=== PATIENT | male | born 1995 | race Native Hawaiian/Other Pacific Islander ===

== ENCOUNTER 2019-08-15 15:23 | Emergency (ER) | payer OTHER, MEDICAID, SELFPAY ==
--- NOTE | 2019-08-15 16:32 | PC.NURSE ---
Patient was in the room masturbating. He was approached by Galilea Gomez RN and told to stop masturbating or the police would be notified.
--- NOTE | 2019-08-15 17:07 | PC.NURSE ---
Pt unable to tell me where he is, situation, history or what day it is. Looks forward and mumbles. Denies chest pain/ shortness of breath. Pt found to be masterbating openly in room and laughed when I asked him to stop. SPECIAL COLLECTIONS LIBRARIAN in to evaluate. Refused lab draw. Refused male staff which I told him was non negotiable.
[2019-08-15 17:22] VITALS: BP 102/49; PULSE 63; RESP 18; TEMP 37.1; O2SAT 98
--- NOTE | 2019-08-15 17:36 | CM.SWNOTE ---
REFRACTORY REPAIRER note REFRACTORY REPAIRER consult requested for patient. Patient account of reasoning for ED visit is different for each person who asks. Patient reports dry heaving at registration, testicular swelling at triage, and that he is at ED to find [his] family to REFRACTORY REPAIRER during assessment. Prior to REFRACTORY REPAIRER assessment, patient was caught masturbating in ED, and asked to stop by ANGEL LUIS Calero. REFRACTORY REPAIRER meets with patient. Patient seems alert, and oriented somewhat to place and person, but not to time. Patient keeps blanket over head throughout assessment. Patient states he is here to find his family, and that [place] REFRACTORY REPAIRER asks if patient knows where, and patient does not respond. REFRACTORY REPAIRER asks when patient last saw his family and patient reports before I was born, and describes a scene in which he was with his family sitting. REFRACTORY REPAIRER asks if patient is feeling unwell and if there is sort of pain or discomfort that resulted in today's ED visit, and patient states not for you to REFRACTORY REPAIRER and requests a female doctor. REFRACTORY REPAIRER inquires about SI/HI and patient denies any history of SI/HI and states is currently not suicidal in any way. REFRACTORY REPAIRER asks patient about what brought him to the ER if he was looking for his family and patient reports he wanted to be sent upstairs and requested a veggie wrap. REFRACTORY REPAIRER asked what he was hoping would happen with today's visit and patient did not respond. When REFRACTORY REPAIRER asked if there was anything else REFRACTORY REPAIRER could do, patient said no and REFRACTORY REPAIRER exited room. REFRACTORY REPAIRER staffs with provider Daphnie Farley and ANGEL LUIS Calero. REFRACTORY REPAIRER will call [facility] for DCR consult for grave disability. Per ATUL report, patient was seen at [facility] previous day, and records have been requested. See below for assessment REFRACTORY REPAIRER - Independent Film Maker Assessment REFRACTORY REPAIRER - Independent Film Maker Assessment Start: 08/15/19 17:22 Freq: Status: Active Protocol: Document 08/15/19 17:22 OSCAR (Rec: 08/15/19 17:36 OSCAR [id number]) REFRACTORY REPAIRER/Independent Film Maker Assessment Time Spent with Patient Start date 08/15/19 Visit Start Time 16:45 End date 08/15/19 Visit End Time 17:00 Total time Care Management spent on 15 patient visit-in minutes Mental Health Screening Include Onset, Duration, Intensity Presenting Problem Patient reports multiple reasons for today's presentation to ED. Patient reported dry heaving at registration, testicular swelling during triage, and informs REFRACTORY REPAIRER during assessment that he came to the ED to find his family, who [place]. Precipitating Event(s) Patient refused to discuss reason for coming to ED with REFRACTORY REPAIRER. When asked if there was health related concern that caused him to come to ED, patient states not for you and I need a female doctor. Current Behavioral Health Provider(s) Unknown Include Facility, Provider, Ph. # Psych. Hx Mental Health and Chemical Unknown based on current Dependency assessment. Family Hx of Behavioral Abuse Unknown Psychiatric Hospitalizations (date(s)/ Patient has been hospitalized location) at [facility] in February,. Support System(s) Unknown/unable to assess School/Work unknown/unable to assess Legal Concerns Legal Matters - Outstanding Issues unknown Mental Status Orientation (Person/Place/Time) Patient appeared to be somewhat oriented to place, was not oriented to time, and somewhat oriented to person. Affect Flat Thought Content - Specify/Describe Unable to fully evaluate. Obsessions, Delusions, Hallucinations Patient did report that that he was here before he was born and discusses time prior to his in the first person during brief assessment . Thought Processes (Cdctjes-Difrddrl-Jzjk tangential- some thought Sjkpqrra-Ecauvpcc-Plpiqyyxzo- blocking Tgkhmovqgoklvs-Pjjuwhx-Lfysspfkoyta- Thought Blocking) Speech (Jbwgkc-Odwe-Wysovjg-Rapid-Soft- Normal Loud-Pressured) Motor (Zzrnaq-Wvwdtmcxv-Mict-Other) Slow. Insight (Present-Partially Present- Impaired Impaired) Judgement (Intact-Impaired) Impaired Impulse Control (Adequate-Impaired) Impaired. Memory (Dcomrtrok-Hsyrlt-Cylioh, Unable to fully assess. Impaired-Intact) Concentration (Intact-Impaired) Impaired Attention (Intact-Impaired) Impaired Behavior (Appropriate-Inappropriate) Inappropriate. Patient was masturbating in ED with door open and asked to stop. Additional Comment Patient held blanket over head during assessment. Risk Assessment Suicidal Ideation (Plan) No Homicidal Ideation (Plan) No Comment Patient actively denies SI/HI, and states he has had not history of self harm or suicide attempts. Intervention Intervention REFRACTORY REPAIRER meets with patient. Patient had been asked to stop masturbating in ED prior to REFRACTORY REPAIRER visit. Patient refuses to answer questions during assessment, and requests a female doctor but will not disclose the reasoning to REFRACTORY REPAIRER. No SI/HI. REFRACTORY REPAIRER will call [facility] to request DCR consult for grave disability. Plan RA Plan REFRACTORY REPAIRER will call [facility] to request DCR consult for grave disability. DIRK Tam
--- NOTE | 2019-08-15 17:45 | CM.SWNOTE ---
SUPERCHARGER MECHANIC note SUPERCHARGER MECHANIC calls [facility] and speaks with Ariadna. SUPERCHARGER MECHANIC provides overview on patient's stay in ED and requests DCR consult. Ariadna informs SUPERCHARGER MECHANIC that enough information was provided for a DCR to be dispatched. Ariadna requests attestation form be faxed to DCR once labs have been completed. SUPERCHARGER MECHANIC speaks with RN Galilea and provider Daphnie Farley NP. RN informs SUPERCHARGER MECHANIC that patient is refusing labs. SUPERCHARGER MECHANIC calls [facility] back and speaks to Grace. Grace informs SUPERCHARGER MECHANIC that if a note is made that patient is refusing labs, to write that in attestation form and fax to [facility]. SUPERCHARGER MECHANIC updates RN and provider, provider signs form, and SUPERCHARGER MECHANIC faxes attestation form to [facility]. Pl: SUPERCHARGER MECHANIC will wait for follow up from DCR. DIRK Tam
--- NOTE | 2019-08-15 19:10 | PC.NURSE ---
Jude Campbell on watch @ 19:00. Sumeet has been informed of Pt. behaviors. Pt. currently on stretcher with blanket over his head.
[2019-08-15 19:12] LABS: Bacteria Urine None Seen; RBC Urine None Seen (0-5/HPF)
[2019-08-15 19:14] LABS: Appearance Urine UA CLEAR; Bilirubin Urine UA NEGATIVE (NEGATIVE); Color Urine UA YELLOW; Glucose Urine UA NEGATIVE (Negative); Ketones Urine UA TRACE (NEGATIVE); Leukocyte Esterase Urine UA NEGATIVE (NEGATIVE); Nitrite Urine UA NEGATIVE (Negative); Occult Blood Urine UA NEGATIVE (Negative); Protein Urine UA TRACE (Negative); Specific Gravity Urine UA >=1.030 (1.000-1.035); Urobilinogen Urine UA 0.2 E.U./dL (0.2)
--- NOTE | 2019-08-15 19:15 | PC.NURSE ---
Pt currently trying to masturbate under blanket, he has been informed that the behavior is not acceptable in this environment. he has accepted apple juice in return for stopping this behavior
[2019-08-15 19:19] LABS: Ur Creatinine Normal (Normal); Ur Specific Gravity Normal (Normal); Urine pH Normal (Normal)
[2019-08-15 19:20] LABS: UR Morphine/Opiate cutoff 300 Negative (Negative); Urine Amphetamines Negative (Negative); Urine Barbiturates Negative (Negative); Urine Benzodiazepines Negative (Negative); Urine Cocaine Negative (Negative); Urine MDMA Negative (Negative); Urine Methadone Negative (Negative); Urine Methamphetamines Negative (Negative); Urine Oxycodone Negative (Negative); Urine Phencyclidine Negative (Negative); Urine Tetrahydrocannabinol Positive (Negative); Urine Tricyclic Antidepressant Negative (Negative)
[2019-08-15 19:22] LABS: WBC Urine 0-1/HPF (0-5/HPF)
[2019-08-15 19:23] LABS: Amorphous Sediment Urine 2+; Culture Indicated Urine Cult Not Indicated; Mucus Urine 3+ (Negative)
--- NOTE | 2019-08-15 19:27 | PC.NURSE ---
DCR currently in Rm with Pt
--- NOTE | 2019-08-15 20:21 | PC.NURSE ---
Pt states I ate a parasite, he thought it was a piece of chocolate on the ground but it might have been a parasite, it was fun
--- NOTE | 2019-08-15 20:39 | PC.NURSE ---
Pt informed that masturbation in the ED rm is not appropriate behaviour
[2019-08-15 20:59] VITALS: BP 131/56; PULSE 51; RESP 16; O2SAT 99
--- NOTE | 2019-08-15 21:18 | ED_ITS ---
HPI - Psych <ALEXA Stovall- - Last Filed: 08/15/19 22:03> General Chief Complaint: Psychiatric Symptoms Stated Complaint: TIRED Time Seen by Provider: 08/15/19 16:05 Source: patient Mode of arrival: Ambulatory Limitations: no limitations and altered mental status History of Present Illness HPI Narrative: The patient is a 23-year-old male who presented to the emergency department today dry heaving to registration. The patient then states that his name is ?shark boy.Upon my interview, he asked me to look at his genitals. The patient states that he is here ?for a health check He denies any cough, chest pain, shortness of breath. He denies any abdominal pain or fever. He is eating and drinking okay. He states that he has not seen a healthcare provider recently, though arnold report illustrate that the patient was seen at [facility] emergency department yesterday and found to be discharged. There he received blood work, CT of his head, CT of his C-spine and a psychiatric evaluation. Related Data Allergies Allergy/AdvReac Type Severity Reaction Status Date / Time No Known Drug Allergies Allergy Verified 08/15/19 15:36 Review of Systems <LUIS A Stovall - Last Filed: 08/15/19 22:03> Review of Systems Narrative: GENERAL: Denies chills, fatigue, malaise, fever, sweats. HEENT: Denies sinus pain, ear pain, sore throat, difficulty swallowing, dizziness. RESPIRATORY: Denies dyspnea, cough, wheezing, hemoptysis, sputum. CARDIOVASCULAR: Denies chest pain, palpitations, orthopnea, edema, GASTROINTESTINAL: Denies nausea, vomiting, abdominal pain, diarrhea, consti pation, melena. : Denies dysuria, frequency, incontinence, hematuria, urinary retention. MUSCULOSKELETAL: denies weakness, joint pain, or bony pain SKIN: Denies rash, skin lesions, or other NEUROLOGIC: See HPI PSYCHIATRIC: No concerning psychosocial issues. 12 point review of systems is negative except for those stated above Exam <LUIS A Stovall - Last Filed: 08/15/19 22:03> Narrative Exam Narrative: GENERAL: This is a well-nourished, well-developed patient, in no acute distress HEAD: Atraumatic. Normocephalic. No temporal or scalp tenderness. EYES: Pupils equal round and reactive. Extraocular motions intact. No scleral icterus. No injection or drainage. ENT: Nose without bleeding, purulent drainage or septal hematoma. Throat without erythema, tonsillar hypertrophy or exudate. Uvula midline. Airway patent. Strabismus noted NECK: Trachea midline. No JVD or lymphadenopathy. Supple, nontender, no meningeal signs. CARDIOVASCULAR: Regular rate and rhythm RESPIRATORY: Clear to auscultation. Breath sounds equal bilaterally. No wheezes, rales, or rhonchi. No cough. No increased respiratory effort. No accessory muscle use. GASTROINTESTINAL: Abdomen soft, non-tender, nondistended. No hepato- splenomegaly, or palpable masses. No guarding. EXTREMITIES: No clubbing, cyanosis, or edema. No joint tenderness, effusion, or edema noted. BACK: Nontender without deformity or crepitance. No flank tenderness. NEURO: Labile affect, giggling at times. States he ate a parasite. Masturbating multiple times in the emergency department requiring multiple e pisodes of redirection. He states he is at a hospital, not exactly sure which hospital, not oriented to time. States that his name is ?shockboy SKIN: No rash or erythema. Initial Vital Signs Initial Vital Signs: Vital Signs Temperature 98.7 F 08/15/19 17:22 Pulse Rate 63 08/15/19 17:22 Respiratory Rate 18 08/15/19 17:22 Blood Pressure 102/49 L 08/15/19 17:22 Pulse Oximetry 98 08/15/19 17:22 <Francsico Todd DO - Last Filed: 08/16/19 05:30> Initial Vital Signs Initial Vital Signs: Vital Signs Temperature 98.7 F 08/15/19 17:22 Pulse Rate 63 08/15/19 17:22 Respiratory Rate 18 08/15/19 17:22 Blood Pressure 102/49 L 08/15/19 17:22 Pulse Oximetry 98 08/15/19 17:22 Scores <ELIZABETH Stovall - Last Filed: 08/15/19 22:03> GCS [place] coma scale eye opening: Spontaneous [place] coma scale verbal response: Orientated Paul coma scale motor response: Obey commands Paul coma scale total score: 15 Course <ELIZABETH Stovall - Last Filed: 08/15/19 22:03> Orders Ordered: ED Orders 08/15/19 21:17 Acetaminophen Stat Complete Blood Count AUTO DIFF Stat Comprehensive Metabolic Panel Stat Ethanol (ETOH) Stat [place] Stat Salicylate Stat Thyroid Stimulating Hormone Stat Discontinued Medications Sodium Chloride (Normal Saline 0.9%) 1,000 mls @ 1,000 mls/hr IV BOLUS ONE Stop: 08/15/19 16:59 Last Admin: 08/15/19 16:53 Dose: Not Given Documented by: ELIANA Lorazepam (Ativan) 1 mg PO NOW ONE Stop: 08/15/19 21:35 Last Admin: 08/15/19 21:50 Dose: 1 mg [facility] Consult[facility] Consultation #1: I spoke with Officer Charlotte from [place] [employer], who states that the patient is not supposed to be on campus as he has been trespassed. However given that the patient is here to get psychiatric help, appears greatly with stable, will not pursue this at this point time. The patient does have a warrant. Vital Signs Vital signs: Vital Signs - 8 hr 08/15/19 17:22 08/15/19 20:59 Temperature 98.7 F Pulse Rate 63 51 L Respiratory Rate 18 16 Blood Pressure [Right Arm] 102/49 L 131/56 L Pulse Oximetry 98 99 <Francisco Todd DO - Last Filed: 08/16/19 05:30> Orders Ordered: ED Orders 08/15/19 21:17 Acetaminophen Stat Complete Blood Count AUTO DIFF Stat Comprehensive Metabolic Panel Stat Ethanol (ETOH) Stat [place] Stat Salicylate Stat Thyroid Stimulating Hormone Stat Discontinued Medications Sodium Chloride (Normal Saline 0.9%) 1,000 mls @ 1,000 mls/hr IV BOLUS ONE Stop: 08/15/19 16:59 Last Admin: 08/15/19 16:53 Dose: Not Given Documented by: ELIANA Lorazepam (Ativan) 1 mg PO NOW ONE Stop: 08/15/19 21:35 Last Admin: 08/15/19 21:50 Dose: 1 mg [facility] Vital Signs Vital signs: Vital Signs - 8 hr 08/15/19 17:22 08/15/19 20:59 Temperature 98.7 F Pulse Rate 63 51 L Respiratory Rate 18 16 Blood Pressure [Right Arm] 102/49 L 131/56 L Pulse Oximetry 98 99 MDM - Psych <Daphnie Farley, ENDOSCOPY TECHNICAN-BC - Last Filed: 08/15/19 22:03> Lab Data Result diagrams: 08/15/19 21:17 08/15/19 21:17 Labs: Lab Results 08/15/19 08/15/19 08/15/19 Range/Units 18:52 18:52 21:17 WBC 6.9 (4.5-11.0) X10^3/uL RBC 3.66 L (4.5-5.9) X10^6/uL Hgb 11.6 L (13.5-17.5) g/dL Hct 34.4 L (41-53) % MCV 94.1 (80-100) fL MCH 31.7 (26-34) PG MCHC 33.7 (30-36) % RDW 12.8 (11.6-14.8) % Plt Count 254 (150-400) X10^3/uL Neut % (Auto) 54.3 (50-75) % Lymph % (Auto) 35.2 (25-40) % Barbour % (Auto) 8.0 (3-14) % Eos % (Auto) 2.3 (2-4) % Baso % (Auto) 0.2 (0-2) % Neut # (Auto) 3800 (5803-8232) /uL Lymph # (Auto) 2400 (3678-5781) /uL Barbour # (Auto) 600 (0-900) /uL Eos # (Auto) 200 (0-450) /uL Baso # (Auto) 0 (0-100) /uL Sodium (137-145) mmol/L Potassium (3.4-5.1) mmol/L Chloride (98-107) mmol/L Carbon Dioxide (22-32) mmol/L BUN (9-20) mg/dL Creatinine (0.66-1.25) mg/dL Estimated GFR (>60) mL/min BUN/Creatinine Ratio (6-22) Glucose (70-100) mg/dL Calcium (8.4-10.2) mg/dL Total Bilirubin (0.2-1.3) mg/dL AST (17-59) IU/L ALT (<50) IU/L Alkaline Phosphatase (38-126) U/L Total Protein (6.3-8.2) g/dL Albumin (3.5-5.0) g/dL Globulin (1.7-4.1) g/dL Albumin/Globulin Ratio (1.0-2.8) TSH (0.47-4.68) uIU/mL Urine Color Yellow Urine Appearance Clear Urine pH 5.0 (4.5-8.0) Ur Specific [place] >=1.030 H (1.000-1.035) Urine Protein Trace H (Negative) Urine Glucose (UA) Negative (Negative) g/dL Urine Ketones Trace H (NEGATIVE) Urine Occult Blood Negative (Negative) Urine Nitrate Negative (Negative) Urine Bilirubin Negative (NEGATIVE) Urine Urobilinogen 0.2 (0.2) E.U./dL Ur Leukocyte Esterase Negative (NEGATIVE) Urine RBC None seen (0-5/HPF) Urine WBC 0-1/hpf (0-5/HPF) Amorphous Sediment 2+ Urine Bacteria None seen (None) Urine Mucus 3+ H (Negative) Ur Culture Indicated? Cult not indicated Salicylates (<20) mg/dL U Opiates 300ng/mL cut Negative (Negative) Ur Oxycodone Screen Negative (Negative) Urine Methadone Screen Negative (Negative) Acetaminophen (10-30) ug/mL Ur Barbiturates Screen Negative (Negative) U Tricyclic Antidepress Negative (Negative) Ur Phencyclidine Scrn Negative (Negative) Ur Amphetamines Screen Negative (Negative) U Methamphetamines Scrn Negative (Negative) Ur MDMA Scrn (Ecstasy) Negative (Negative) U Benzodiazepines Scrn Negative (Negative) [place] (0.6-1.2) mmol/L Urine Cocaine Screen Negative (Negative) U Marijuana (THC) Screen Positive H (Negative) Ethyl Alcohol ( - 10) mg/dL 08/15/19 08/15/19 Range/Units 21:17 21:17 WBC (4.5-11.0) X10^3/uL RBC (4.5-5.9) X10^6/uL Hgb (13.5-17.5) g/dL Hct (41-53) % MCV (80-100) fL MCH (26-34) PG MCHC (30-36) % RDW (11.6-14.8) % Plt Count (150-400) X10^3/uL Neut % (Auto) (50-75) % Lymph % (Auto) (25-40) % [place] % (Auto) (3-14) % Eos % (Auto) (2-4) % Baso % (Auto) (0-2) % Neut # (Auto) (8219-2731) /uL Lymph # (Auto) (5949-6224) /uL [place] # (Auto) (0-900) /uL Eos # (Auto) (0-450) /uL Baso # (Auto) (0-100) /uL Sodium 142 (137-145) mmol/L Potassium 3.4 (3.4-5.1) mmol/L Chloride 110 H (98-107) mmol/L Carbon Dioxide 28 (22-32) mmol/L BUN 10 (9-20) mg/dL Creatinine 0.87 (0.66-1.25) mg/dL Estimated GFR > 60.0 (>60) mL/min BUN/Creatinine Ratio 11.5 (6-22) Glucose 100 (70-100) mg/dL Calcium 9.2 (8.4-10.2) mg/dL Total Bilirubin 0.3 (0.2-1.3) mg/dL AST 81 H (17-59) IU/L ALT 26 (<50) IU/L Alkaline Phosphatase 54 (38-126) U/L Total Protein 6.6 (6.3-8.2) g/dL Albumin 3.9 (3.5-5.0) g/dL Globulin 2.7 (1.7-4.1) g/dL Albumin/Globulin Ratio 1.4 (1.0-2.8) TSH 2.01 (0.47-4.68) uIU/mL Urine Color Urine Appearance Urine pH (4.5-8.0) Ur Specific [place] (1.000-1.035) Urine Protein (Negative) Urine Glucose (UA) (Negative) g/dL Urine Ketones (NEGATIVE) Urine Occult Blood (Negative) Urine Nitrate (Negative) Urine Bilirubin (NEGATIVE) Urine Urobilinogen (0.2) E.U./dL Ur Leukocyte Esterase (NEGATIVE) Urine RBC (0-5/HPF) Urine WBC (0-5/HPF) Amorphous Sediment Urine Bacteria (None) Urine Mucus (Negative) Ur Culture Indicated? Salicylates < 1.0 (<20) mg/dL U Opiates 300ng/mL cut (Negative) Ur Oxycodone Screen (Negative) Urine Methadone Screen (Negative) Acetaminophen < 10 L (10-30) ug/mL Ur Barbiturates Screen (Negative) U Tricyclic Antidepress (Negative) Ur Phencyclidine Scrn (Negative) Ur Amphetamines Screen (Negative) U Methamphetamines Scrn (Negative) Ur MDMA Scrn (Ecstasy) (Negative) U Benzodiazepines Scrn (Negative) [place] < 0.2 L (0.6-1.2) mmol/L Urine Cocaine Screen (Negative) U Marijuana (THC) Screen (Negative) Ethyl Alcohol < 10 ( - 10) mg/dL MDM Narrative Medical decision making narrative: The patient is a 23-year-old male who presents with a chief complaint of ?needing a health check.The patient initially declines any lab work. Eventually he agrees to lab work. However the patient appears to be gravely disabled, stating that he was ?here before he was born states that his name is shark boy and needing redirection multiple times for masturbating in his emergency department room. Patient was evaluated by Sebastián CAVAZOS, who states the patient is gravely disabled. DCR came to see patient and helped arrange for admission at [facility] under Dr. Murcia. Patient was transferred by ambulance with 1 mg Ativan pre transport. Discussed patient with Dr. Todd awaiting ambulance transportation however patient is fully dispositioned and hemodynamically stable at this point time <Francisco Todd, - Last Filed: 08/16/19 05:30> Lab Data Labs: Lab Results 08/15/19 08/15/19 08/15/19 Range/Units 18:52 18:52 21:17 WBC 6.9 (4.5-11.0) X10^3/uL RBC 3.66 L (4.5-5.9) X10^6/uL Hgb 11.6 L (13.5-17.5) g/dL Hct 34.4 L (41-53) % MCV 94.1 (80-100) fL MCH 31.7 (26-34) PG MCHC 33.7 (30-36) % RDW 12.8 (11.6-14.8) % Plt Count 254 (150-400) X10^3/uL Neut % (Auto) 54.3 (50-75) % Lymph % (Auto) 35.2 (25-40) % [place] % (Auto) 8.0 (3-14) % Eos % (Auto) 2.3 (2-4) % Baso % (Auto) 0.2 (0-2) % Neut # (Auto) 3800 (2048-6329) /uL Lymph # (Auto) 2400 (5528-8170) /uL [place] # (Auto) 600 (0-900) /uL Eos # (Auto) 200 (0-450) /uL Baso # (Auto) 0 (0-100) /uL Sodium (137-145) mmol/L Potassium (3.4-5.1) mmol/L Chloride (98-107) mmol/L Carbon Dioxide (22-32) mmol/L BUN (9-20) mg/dL Creatinine (0.66-1.25) mg/dL Estimated GFR (>60) mL/min BUN/Creatinine Ratio (6-22) Glucose (70-100) mg/dL Calcium (8.4-10.2) mg/dL Total Bilirubin (0.2-1.3) mg/dL AST (17-59) IU/L ALT (<50) IU/L Alkaline Phosphatase (38-126) U/L Total Protein (6.3-8.2) g/dL Albumin (3.5-5.0) g/dL Globulin (1.7-4.1) g/dL Albumin/Globulin Ratio (1.0-2.8) TSH (0.47-4.68) uIU/mL Urine Color Yellow Urine Appearance Clear Urine pH 5.0 (4.5-8.0) Ur Specific [place] >=1.030 H (1.000-1.035) Urine Protein Trace H (Negative) Urine Glucose (UA) Negative (Negative) g/dL Urine Ketones Trace H (NEGATIVE) Urine Occult Blood Negative (Negative) Urine Nitrate Negative (Negative) Urine Bilirubin Negative (NEGATIVE) Urine Urobilinogen 0.2 (0.2) E.U./dL Ur Leukocyte Esterase Negative (NEGATIVE) Urine RBC None seen (0-5/HPF) Urine WBC 0-1/hpf (0-5/HPF) Amorphous Sediment 2+ Urine Bacteria None seen (None) Urine Mucus 3+ H (Negative) Ur Culture Indicated? Cult not indicated Salicylates (<20) mg/dL U Opiates 300ng/mL cut Negative (Negative) Ur Oxycodone Screen Negative (Negative) Urine Methadone Screen Negative (Negative) Acetaminophen (10-30) ug/mL Ur Barbiturates Screen Negative (Negative) U Tricyclic Antidepress Negative (Negative) Ur Phencyclidine Scrn Negative (Negative) Ur Amphetamines Screen Negative (Negative) U Methamphetamines Scrn Negative (Negative) Ur MDMA Scrn (Ecstasy) Negative (Negative) U Benzodiazepines Scrn Negative (Negative) [place] (0.6-1.2) mmol/L Urine Cocaine Screen Negative (Negative) U Marijuana (THC) Screen Positive H (Negative) Ethyl Alcohol ( - 10) mg/dL 08/15/19 08/15/19 Range/Units 21:17 21:17 WBC (4.5-11.0) X10^3/uL RBC (4.5-5.9) X10^6/uL Hgb (13.5-17.5) g/dL Hct (41-53) % MCV (80-100) fL MCH (26-34) PG MCHC (30-36) % RDW (11.6-14.8) % Plt Count (150-400) X10^3/uL Neut % (Auto) (50-75) % Lymph % (Auto) (25-40) % [place] % (Auto) (3-14) % Eos % (Auto) (2-4) % Baso % (Auto) (0-2) % Neut # (Auto) (5944-4002) /uL Lymph # (Auto) (8585-2649) /uL [place] # (Auto) (0-900) /uL Eos # (Auto) (0-450) /uL Baso # (Auto) (0-100) /uL Sodium 142 (137-145) mmol/L Potassium 3.4 (3.4-5.1) mmol/L Chloride 110 H (98-107) mmol/L Carbon Dioxide 28 (22-32) mmol/L BUN 10 (9-20) mg/dL Creatinine 0.87 (0.66-1.25) mg/dL Estimated GFR > 60.0 (>60) mL/min BUN/Creatinine Ratio 11.5 (6-22) Glucose 100 (70-100) mg/dL Calcium 9.2 (8.4-10.2) mg/dL Total Bilirubin 0.3 (0.2-1.3) mg/dL AST 81 H (17-59) IU/L ALT 26 (<50) IU/L Alkaline Phosphatase 54 (38-126) U/L Total Protein 6.6 (6.3-8.2) g/dL Albumin 3.9 (3.5-5.0) g/dL Globulin 2.7 (1.7-4.1) g/dL Albumin/Globulin Ratio 1.4 (1.0-2.8) TSH 2.01 (0.47-4.68) uIU/mL Urine Color Urine Appearance Urine pH (4.5-8.0) Ur Specific [place] (1.000-1.035) Urine Protein (Negative) Urine Glucose (UA) (Negative) g/dL Urine Ketones (NEGATIVE) Urine Occult Blood (Negative) Urine Nitrate (Negative) Urine Bilirubin (NEGATIVE) Urine Urobilinogen (0.2) E.U./dL Ur Leukocyte Esterase (NEGATIVE) Urine RBC (0-5/HPF) Urine WBC (0-5/HPF) Amorphous Sediment Urine Bacteria (None) Urine Mucus (Negative) Ur Culture Indicated? Salicylates < 1.0 (<20) mg/dL U Opiates 300ng/mL cut (Negative) Ur Oxycodone Screen (Negative) Urine Methadone Screen (Negative) Acetaminophen < 10 L (10-30) ug/mL Ur Barbiturates Screen (Negative) U Tricyclic Antidepress (Negative) Ur Phencyclidine Scrn (Negative) Ur Amphetamines Screen (Negative) U Methamphetamines Scrn (Negative) Ur MDMA Scrn (Ecstasy) (Negative) U Benzodiazepines Scrn (Negative) [place] < 0.2 L (0.6-1.2) mmol/L Urine Cocaine Screen (Negative) U Marijuana (THC) Screen (Negative) Ethyl Alcohol < 10 ( - 10) mg/dL Discharge Plan Departure Patient Disposition: Xfer Psychiatric Hosp Clinical Impression: Acute psychosis Discharge Date/Time: 08/15/19 22:20 <Francisco Todd DO - Last Filed: 08/16/19 05:30> Cosign ED Attending Cosignature Attestation: I was immediately available in the department for consultation. This documentation has been reviewed and I agree with assessment and plan. Supervised by Francisco Todd, DO
--- NOTE | 2019-08-15 21:18 | PC.NURSE ---
Pt allowed blood draw and was cooperative
--- NOTE | 2019-08-15 21:26 | PC.NURSE ---
PT accepted at [facility] for admission per DCR and [facility] RN Sarika with admitting Dr. Murcia. Transport being arranged, pt resting calmly in room and updated. Pt given cranberry juice and declined food offered.
[2019-08-15 21:28] LABS: Add Manual Diff / Slide Review NO; Basophils Absolute Auto 0 /uL (0-100); Basophils Percent Auto 0.2 % (0-2); Eosinophils Absolute Auto 200 /uL (0-450); Eosinophils Percent Auto 2.3 % (2-4); Hematocrit 34.4 % (41-53); Hemoglobin 11.6 g/dL (13.5-17.5); Lymphocytes Absolute Auto 2400 /uL (1100-4500); Lymphocytes Percent Auto 35.2 % (25-40); Mean Corpuscular HGB Conc 33.7 % (30-36); Mean Corpuscular Hemoglobin 31.7 PG (26-34); Mean Corpuscular Volume 94.1 fL (80-100); Monocytes Absolute Auto 600 /uL (0-900); Neutrophils Absolute Auto 3800 /uL (1500-7000); Neutrophils Percent Auto 54.3 % (50-75); Platelet Count 254 X10^3/uL (150-400); Red Blood Cell Count 3.66 X10^6/uL (4.5-5.9); Red Cell Distribution Width 12.8 % (11.6-14.8); White Blood Cell Count 6.9 X10^3/uL (4.5-11.0)
[2019-08-15 21:42] LABS: Acetaminophen < 10 ug/mL (10-30); Alanine Aminotransferase 26 IU/L (<50); Albumin 3.9 g/dL (3.5-5.0); Albumin Globulin Ratio 1.4 (1.0-2.8); Alkaline Phosphatase 54 U/L (38-126); Aspartate Aminotransferase 81 IU/L (17-59); BUN Creatinine Ratio 11.5 (6-22); Bilirubin Total 0.3 mg/dL (0.2-1.3); Blood Urea Nitrogen 10 mg/dL (9-20); Calcium 9.2 mg/dL (8.4-10.2); Carbon Dioxide 28 mmol/L (22-32); Chloride 110 mmol/L (98-107); Estimated Glomerular Filt Rate > 60.0 mL/min (>60); Ethanol (ETOH) < 10 mg/dL; Globulin 2.7 g/dL (1.7-4.1); Glucose 100 mg/dL (70-100); HEMOLYSIS < 15 (0-50); Potassium 3.4 mmol/L (3.4-5.1); Salicylate < 1.0 mg/dL (<20); Sodium 142 mmol/L (137-145); Total Protein 6.6 g/dL (6.3-8.2)
[2019-08-15] MEDS: LORazepam 0.5 MG TABLET 1 MG PO (21:50)
--- NOTE | 2019-08-15 22:18 | PC.NURSE ---
[facility] is here to transport Pt
--- NOTE | 2019-08-15 22:20 | PC.NURSE ---
Pt has left with [facility]. End watch
[2019-08-15 22:29] LABS: Lithium < 0.2 mmol/L (0.6-1.2)
[2019-08-15 22:58] LABS: Thyroid Stimulating Hormone 2.01 uIU/mL (0.47-4.68)
== END 2019-08-15 22:20 ==
PROVIDERS: Emergency Medicine; Emergency Provider Nurse Practitioner Family
DX: F23 Brief psychotic disorder (principal)
CPT/HCPCS: 80053; 80178; 80305; 80320; 80329; 81001; 84443; 85025; 93005; 99284; G0480

== ENCOUNTER 2020-05-19 20:07 | Emergency (ER) | payer OTHER, SELFPAY ==
--- NOTE | 2020-05-19 21:02 | ED.PSYCH ---
HPI - Psych General Chief Complaint: Extremity Problem,Nontraumatic Stated Complaint: states needs shots and help Time Seen by Provider: 05/19/20 20:49 Source: patient Mode of arrival: Ambulatory Limitations: other History of Present Illness HPI Narrative: Patient is a 24-year-old male somewhat shop to somewhat difficult to get exact reason as to why he is here. He states that he is here for ?a shot? when asked him what he needs this shot for he stated that he needed a tetanus shot. When asked him why he needed a tetanus shot he stated that he cut his ear in 2016 and recently has developed some muscle spasms in fevers any thought he had tetanus from this. He does not know when his last tetanus shot was. He also wants to be assessed for mother issues. It is difficult for him to exactly express what he wanted seen for. He is somewhat tangential in his answers for questioning. Review of Systems Constitutional Constitutional: Reports fever(s) Cardiovascular Cardiovascular: Denies chest pain and Denies dyspnea Respiratory Respiratory: Denies dyspnea Musculoskeletal Musculoskeletal: Reports muscle cramps, Reports stiffness and Denies tingling Integumentary/Breasts Comments: Injury to right ear several years ago Neurologic Neurologic: Denies tingling Hematologic/Lymphatic On Anticoagulants: No Allergic/Immunologic Allergic/Immunologic: Denies urticaria Patient History Medical History Patient denies medical problems Social History Smoking Status: Current every day smoker Exam Initial Vital Signs Initial Vital Signs: Vital Signs Temperature 99.3 F 05/19/20 21:09 Pulse Rate 79 05/19/20 21:09 Respiratory Rate 17 05/19/20 21:09 Blood Pressure 135/82 05/19/20 21:09 Pulse Oximetry 97 05/19/20 21:09 Const General: disheveled HENMT Head: normal to inspection and normocephalic Ears: other (Patient has a well healed scar right earlobe) Nose: external nose normal Mouth: oral mucosae normal Resp Effort & Inspection: normal respiratory effort Cardio Rate: regular rate Skin Lesions: no lesions Rashes: no rashes Extrem General: capillary refill normal Course Orders Ordered: Discontinued Medications Diphtheria/Tetanus/Acell Pertussis (Tet,Diph,Pertuss(Acell),Vac/Pf 0.5 Ml Syringe) 0.5 ml IM .ONCE ONE Stop: 05/19/20 21:04 Last Admin: 05/19/20 21:07 Dose: 0.5 ml Documented by: KIMI Vital Signs Vital signs: Vital Signs - 8 hr 05/19/20 21:09 05/19/20 21:32 Temperature 99.3 F Pulse Rate 79 84 Respiratory Rate 17 18 Blood Pressure 135/82 128/64 Pulse Oximetry 97 98 MDM - Psych MDM Narrative Medical decision making narrative: I informed the patient that the injury to his right ear is well healed and there is no signs of any infection. He was concerned about tetanus does not know when his last tetanus shot was. Given his age I do not feel it is unreasonable to update his tetanus for him. He was given that during this visit. He is disheveled. Somewhat tangential in his answers to questions and also describing why he is here. He explicitly stated that he was not suicidal. Not homicidal. He is afebrile. When asked if there was anything more we could do for him he mentioned that he wanted us to contact his mother so that she can come in to pick him up. He stated that she lived in [place]. We offered a phone for him to contact her however he stated that he did not our phone number. Unfortunately do not have her phone number as well. He stated that there was nothing else that we could help him with. He was discharged home with return precautions Discharge Plan Departure Patient Disposition: Home Clinical Impression: Need for [id number] (Tdap) vaccine Activity Restrictions/Additional Instructions: Recommend that you contact your primary provider for follow-up. If you do not have a primary doctor you can contact the health human resources receptionist [phone]. Return to the emergency department for any new or worsening symptoms
[2020-05-19] MEDS: TET,DIPH,PERTUSS(ACELL),VAC/PF 0.5 ML SYRINGE IM (21:07)
[2020-05-19 21:09] VITALS: BP 135/82; PULSE 79; RESP 17; TEMP 37.4; O2SAT 97; BMI 24.7
[2020-05-19 21:32] VITALS: BP 128/64; PULSE 84; RESP 18; O2SAT 98
== END 2020-05-19 21:33 | disposition home or self-care (01) ==
PROVIDERS: Emergency Provider Emergency Medicine
DX: Z23 Encounter for immunization (principal)
CPT/HCPCS: 90471; 99281; 99283; 90715